=== PATIENT | female | born 1990 | race Caucasian/White ===

== ENCOUNTER 2022-09-18 19:51 | Emergency (ER) | payer SELFPAY ==
[~2022-09-18] VITALS: Ht 167.6 cm; Wt 77.3 kg
[2022-09-18 20:03] VITALS: BP 119/72
== END 2022-09-18 21:42 | disposition home or self-care (01) ==
LOC: ER 19:52
DX: S92.491A Other fracture of right great toe, initial encounter for closed fracture (principal); W18.39XA Other fall on same level, initial encounter; Y93.89 Activity, other specified; Y92.89 Other specified places as the place of occurrence of the external cause; Y99.8 Other external cause status
CPT/HCPCS: 11740; 73660; 99284; L3260; A6449